=== PATIENT | female | born 1980 | race American Indian/Alaskan Native ===

== ENCOUNTER 2019-04-07 16:04 | Emergency (ER) | payer BC ==
[2019-04-07] MEDS ORDERED: ACETAMINOPHEN 325 MG TAB PO ONE (16:24)
[2019-04-07] MEDS ORDERED: ACETAMINOPHEN 325 MG TAB ONE (16:27)
--- NOTE | 2019-04-07 19:37 | Emergency Department Report ---
HPI - General Chief Complaint: Upper Respiratory Infection Time Seen by Provider: 04/07/19 19:17 - HPI HPI: This is a 38-year-old female here well-nourished well-developed and nontoxic in appearance. Patient reported that she is having fever N sinus congestion cough with nasal drainage and body ache and this is been going on for the last 4 days. She states she took [id number]-cyk-gmmnhdw medication but no relief. She did not take her temperature at home but her temperature in triage is 102.2 and tachycardic. Denies any shortness of breath or chest pain. Denies any sore throat. Denies any nausea or vomiting. Body aches is 5 out of 10 achy and cons tant. Denies any abdominal pain or back pain. Denies any urinary burning frequency or urgency. ED Past Medical Hx - Past Medical History Previous Medical History?: Yes Hx Hypertension: Yes - Surgical History Past Surgical History?: No - Family History Family history: hypertension - Social History Smoking Status: Never Smoker Substance Use Type: None - Medications Home Medications: Home Medications Medication Instructions Recorded Confirmed Last Taken Type Azithromycin [Zithromax Z-MJ] 250 mg PO DAILY 5 Days #1 pkg 04/07/19 Unknown Rx Cetirizine HCl [ZyrTEC] 10 mg PO QAM 14 Days #14 capsule 04/07/19 Unknown Rx Fluticasone [Flonase] 1 spray NS QDAY 14 Days #1 bottle 04/07/19 Unknown Rx Ibuprofen [Motrin] 600 mg PO Q8H PRN #12 tablet 04/07/19 Unknown Rx guaiFENesin/CODEINE [Robitussin AC] 10 ml PO QHS PRN #70 oral.liqd 04/07/19 Unknown Rx ED Review of Systems ROS: Stated complaint: FLU SYM Other details as noted in HPI Constitutional: chills, fever Eyes: denies: eye pain, eye discharge ENT: congestion (nasal congestion or runny nose.), other (report facial pain). denies: ear pain, throat pain Respiratory: cough. denies: shortness of breath, SOB with exertion, SOB at rest, stridor, wheezing Cardiovascular: denies: chest pain, palpitations, dyspnea on exertion, edema, syncope Gastrointestinal: denies: abdominal pain, nausea, vomiting, diarrhea Musculoskeletal: myalgia. denies: back pain, joint swelling, arthralgia Skin: denies: rash Neurological: denies: headache, numbness, paresthesias, abnormal gait, vertigo Physical Exam - Physical Exam Vital Signs: Vital Signs 04/07/19 04/07/19 04/07/19 16:23 16:26 18:54 Temperature 102.2 F H 99.2 F Pulse Rate 119 H 106 H Respiratory 20 20 18 Rate Blood Pressure 130/76 Blood Pressure 152/94 [Right] O2 Sat by Pulse 100 97 Oximetry General: This is a 38-year-old female well-nourished well-developed in no acute distress. Physical Exam: Head: Normocephalic atraumatic Ears:BIateral TM congested without erythema and loss of bony landmarks. Adam EAC with normal exam. No mastoid bone tenderness. Mouth: Moist, no pharyngeal erythema or exudate . exudate. UVULA midline and oral airways patent. Neck: Nontender to palpate, supple, normal range of motion. No adenopathy. No c- spine tenderness. Nose: Bilateral nasal mucosa congested/erythema with clear drainage. Maxillary and frontal sinuses tender to palpate. Eyes: Bilateral Sclerae and conjunctiva without injection. Bilateral pupils equal and reactive to light. Bilateral lids are normal. Normal accommodation.BEOMI Lungs: Clear to auscultate bilaterally, no rhonchi wheezes or rales. Normal work of breathing and no chest wall tenderness CV: S1, S2. tachycardia 119 and rhythm negative murmur. Capillary refill is less than 3 seconds Abdomen: Nontender to palpation in all quadrants: No guarding or rebound tenderness. Positive bowel sounds in all quadrants Extremity: No clubbing, cyanosis or edema. +2 pulses in all extremities and no neurovascular compromise Skin: Clean dry and intact, no rashes or lesions Psych: Normal mood and behavior ED Course Vital Signs 04/07/19 04/07/19 04/07/19 16:23 16:26 18:54 Temperature 102.2 F H 99.2 F Pulse Rate 119 H 106 H Respiratory 20 20 18 Rate Blood Pressure 130/76 Blood Pressure 152/94 [Right] O2 Sat by Pulse 100 97 Oximetry - Reevaluation(s) Reevaluation #1: 04/07/19 20:56 Patient received Tylenol with Codeine 10 mL emergency room. She was able to tolerate 1 L of water by mouth without any nausea or vomiting. Her heart rate and her temperature has normalized. She says she is feeling a lot better. She was given Tylenol and triage area and given Motrin 600 mg 2 keep temperature down. ED Medical Decision Making - Lab Data Lab Results 04/07/19 Range/Units Unknown Influenza A (Rapid) Negative (Negative) Influenza B (Rapid) Negative (Negative) - Radiology Data Radiology results: report reviewed Two-view chest x-ray dictated by radiologist and report reviewed by myself. No acute findings Print Report Referring Physician: OSIEL COLBY Patient Name: JAREN JUAN Date of : 1980 Sex: Female Report Date: 2019-04-07 Report Status: Finalized Findings [facility] [address] [place] [address] XRay Report Signed Patient: JAREN PERKINS MR#: [id number] : 1980 Acct:[id number] Age/Sex: 38 / F ADM Date: 04/07/19 Loc: ED Attending Dr: Ordering Physician: MARISOL VELÁZQUEZ Date of Service: 04/07/19 Procedure(s): XR chest routine 2V Accession Number(s): [id number] cc: MARISOL VELÁZQUEZ Fluoro Time In Minutes: CHEST 2 VIEWS INDICATION / CLINICAL INFORMATION: cough, fever. COMPARISON: None available. FINDINGS: SUPPORT DEVICES: None. HEART / MEDIASTINUM: No significant abnormality. LUNGS / PLEURA: No significant pulmonary or pleural abnormality. No pneumothorax. ADDITIONAL FINDINGS: No significant additional findings. IMPRESSION: 1. No acute findings. Signer Name: Jaswinder Mendoza MD Signed: 04/07/2019 8:15 PM Workstation Name: [id number] Transcribed By: [place] Dictated By: Jaswinder Mendoza MD Electronically Authenticated By: Jaswinder Mendoza MD Signed Date/Time: 04/07/192014 DD/ 14 TD/TT: - Medical Decision Making This is a 38-year-old female here for cough and cold and found to have acute bacterial sinusitis with cough and congestion. She was treated with Tylenol and Motrin along with cough syrup in emergency room which relieved her symptoms. She also tolerated oral liquids in emergency room. Vital signs has improved since oral hydration and medication. Chest is or was dictated by radiologist and report reviewed by myself and no acute findings. Influenza A and B is negative. Patient's that she is feeling a lot better and I discussed her diagnosis and treatment plan and she voiced understanding. Patient discharged home in stable condition with prescription for guaifenesin with codeine, Zyrtec, Flonase, Medrol Dosepak and Z-Mj. She is to follow-up with her primary care in 2 days - Differential Diagnosis PNA, viral syndrome, sinusitis, rhinitis, urine cough and congestion Critical care attestation.: If time is entered above; I have spent that time in minutes in the direct care of this critically ill patient, excluding procedure time. ED Disposition Clinical Impression: Acute bacterial rhinosinusitis, Cough, Fever in adult Disposition: DC-01 TO HOME OR SELFCARE Is pt being admited?: No Does the pt Need Aspirin: No Condition: Stable Instructions: Acute Bacterial Rhinosinusitis (ED), Acute Cough (ED), Fever in Adults (ED) Additional Instructions: Please increase her fluid intake to include Gatorade and water to 2-3 L daily. Take medication as prescribed and please take one finished send with codeine cough syrup as prescribed but please do not drive or operate heavy machinery while taking this medication. This medication will cause drowsiness Follow up with a primary care physician in 2-3 days but if he condition worsens please return to the emergency room [facility] Referrals: JUVE BOCANEGRA MD [Primary Care Provider] - 2-3 Days Forms: Work/School Release Form(ED), Accompanied Note
[2019-04-07] MEDS ORDERED: ACETAMINOPEN W/CODEINE 120-12MG ORAL LIQD 5 ML PO ONE (19:38)
[2019-04-07] MEDS ORDERED: IBUPROFEN 600 MG TAB PO ONE (19:38)
--- NOTE | 2019-04-07 20:19 | XRay Report ---
CHEST 2 VIEWS INDICATION / CLINICAL INFORMATION: cough, fever. COMPARISON: None available. FINDINGS: SUPPORT DEVICES: None. HEART / MEDIASTINUM: No significant abnormality. LUNGS / PLEURA: No significant pulmonary or pleural abnormality. No pneumothorax. ADDITIONAL FINDINGS: No significant additional findings. IMPRESSION: 1. No acute findings. Signer Name: Jaswinder Mendoza MD Signed: 04/07/2019 8:15 PM Workstation Name: [id number]
[2019-04-07 20:59] VITALS: BP 132/97
== END 2019-04-07 21:25 | disposition home or self-care (01) ==
LOC: ED 16:04
DX: J01.80 Other acute sinusitis (principal); B96.89 Other specified bacterial agents as the cause of diseases classified elsewhere; R05 Cough; R50.9 Fever, unspecified; I10 Essential (primary) hypertension; Z79.899 Other long term (current) drug therapy
CPT/HCPCS: 71046; 87400